=== PATIENT | female | born 2000 | race Caucasian/White ===

== ENCOUNTER 2019-10-20 09:20 | Day surgery (SDC) | payer OTHER ==
[2019-10-17 11:34] LABS: BASOPHILS 0.5 % (0-2); HEMATOCRIT 35.6 % (36.0-48.0); HEMOGLOBIN 11.2 g/dL (12-16); IMMATURE GRANULOCYTES 0.2 % (0-5); LYMPHOCYTES 30.8 % (15-50); MCHC 31.5 g/dL (31.0-37.0); MCV 58.9 fL (80.0-100.0); MONOCYTES 7.7 % (2-11); NEUTROPHILS 56.8 % (40-80); PLATELET COUNT 309 10x3/uL (130-400); RBC 6.04 10x6/uL (4.00-5.40); RDW 15.3 % (11.5-14.5); WBC 5.5 10x3/uL (4.8-10.8)
[2019-10-17 11:38] LABS: APTT 30.3 SECONDS (22.8-39.4); INR 1.14 (0.85-1.17); PROTIME 14.1 SECONDS (11.6-15.0)
[2019-10-17 12:14] LABS: MCH 18.5 pg (26.0-34.0)
[~2019-10-20] VITALS: Ht 162.6 cm; Wt 61.7 kg
[~2019-10-20 09:20] MED LIST: LEXAPRO10 MG PO; SEROQUEL100 MG PO
[2019-10-20 12:41] VITALS: BP 102/55; Ht 162.6 cm; Wt 61.7 kg
[2019-10-20 13:21] LABS: HCG URINE NEGATIVE (NEGATIVE)
[2019-10-20] MEDS ORDERED: HYDROCODON-ACE1 EA10 PO (15:22)
--- NOTE | 2019-10-20 16:38 | NUR ---
1635 ICE CAP PROVIDED FOR KNEE.
--- NOTE | 2019-10-22 10:08 | OP ---
PATIENT NAME: ELMER BECK MEDICAL RECORD: [id number] :99 LOCATION:[facility] ADMISSION DATE: SURGEON: ASHELY BAEZ MD DATE OF OPERATION: 10/20/2019 PREOPERATIVE DIAGNOSIS: Patellofemoral stress syndrome of the right knee. POSTOPERATIVE DIAGNOSIS: Patellofemoral stress syndrome of the right knee. PROCEDURE: Arthroscopic lateral release of the right knee. SURGEON: Ashely Baez MD ANESTHESIA: General. INTRAOPERATIVE COMPLICATIONS: None. SUMMARY OF PATHOLOGIC FINDINGS: The patient had a lateral riding C type patella consistent with the preoperative MRI meniscus, ACL, PCL and all other portions of the knee scoped were benign. OPERATIVE SUMMARY IN DETAIL: After obtaining the appropriate preoperative orthopedic surgery consent as well as anesthetic consultation, evaluation and clearance, the patient was brought to the operating room and placed on the operating table in supine position. After adequate general laryngeal mask airway was administered, a tourniquet was placed about the proximal aspect of the patient's right lower extremity. Right lower extremity was then prepped and draped in routine sterile fashion. Leg was elevated, exsanguinated, and tourniquet was inflated to 350 mmHg. Routine inferolateral portal was established followed by superomedial portal and inferomedial portal. Diagnostic arthroscopy did reveal the above findings. The Meridian tissue ablation device was utilized with direct visualization from the medial portal. Lateral release was performed from just inferior to the vastus lateralis to the inferior lateral portal. This resulted in excellent patellar realignment. Having completed this, the knee was insufflated with 30 mL of 0.25% Marcaine with epinephrine and 40 mg of Depo-Medrol, arthroscopy portals were closed in routine interrupted fashion using 4-0 Prolene. Sterile dressings were applied. Tourniquet was deflated. The patient was awakened, taken to recovery room in stable condition. All final needle and sponge counts were correct. TRANSINT:[id number] Voice Confirmation ID: [id number] DOCUMENT ID: [id number] ASHELY BAEZ MD at 1008 CC: [id number] DICTATION DATE: 10/20/19 1524 NURSING UNIT CLERK: 10/21/19 0020 [facility] 10/20/19 [place] [address]
== END 2019-10-20 17:30 | disposition home or self-care (01) ==
LOC: D.OPS 09:20 → D.PAN 09:45 → D.OPS 09:45
PROVIDERS: Anesthesiology; ATTEND Orthopaedic Surgery
DX: M22.2X1 Patellofemoral disorders, right knee (principal); M25.561 Pain in right knee